=== PATIENT | male | born 1935 | race Caucasian/White ===

== ENCOUNTER 2017-03-01 23:50 | Inpatient (IN) | payer MEDICARE, OTHER ==
[~2017-03-01] VITALS: Ht 180.3 cm; Wt 86.9 kg
[2017-03-02 01:16] VITALS: BP 147/84
[2017-03-02 01:30] VITALS: BP 147/84
[2017-03-02] MEDS: SODIUM CHLORIDE 0.9% 1,000 ML IV SCH ×2 (01:58→19:59)
[2017-03-02] MEDS ORDERED: DOCUSATE 100 MG CAPSULE PO PRN (02:00)
[2017-03-02] MEDS ORDERED: PROMETHAZINE 25 MG/ML, 1ML IM PRN (02:00)
[2017-03-02] MEDS ORDERED: OXYcodone IR 5MG TABLET PO PRN (02:00)
[2017-03-02] MEDS ORDERED: POLYETHYLENE GLYCOL 17 GM PACKET PO PRN (02:00)
[2017-03-02] MEDS ORDERED: morphine SULFATE 10 MG/ML, 1ML IVPush PRN (02:00)
[2017-03-02] MEDS ORDERED: BISACODYL 10 MG SUPP PR PRN (02:00)
[2017-03-02] MEDS ORDERED: ACETAMINOPHEN 325 MG TABLET PO PRN (02:00)
[2017-03-02 03:50] LABS: ASPARTATE AMINO TRANSFERASE 25 U/L (15-37); BLOOD UREA NITROGEN 26 mg/dL (7-18)
[2017-03-02 08:17] VITALS: BP_SYST 114; BP_SYST 123; BP_DIAS 71; BP_DIAS 76
[2017-03-02] MEDS: FINASTERIDE 5 MG TABLET PO SCH (10:20)
[2017-03-02] MEDS: FAMOTIDINE 20 MG TABLET PO SCH ×2 (10:20→19:59)
[2017-03-02] MEDS ORDERED: MIDAZOLAM 1 MG/ML, 5ML ONE (12:27)
[2017-03-02] MEDS ORDERED: NALOXONE 1 MG/ML, 2ML ONE (12:27)
[2017-03-02] MEDS ORDERED: FENTANYL PF 100 MCG/2ML ONE (12:27)
[2017-03-02] MEDS ORDERED: FLUMAZENIL 0.1 MG/1 ML, 5ML ONE (12:27)
[2017-03-02 13:54] VITALS: BP 103/63
[2017-03-02] MEDS ORDERED: GADOBUTROL 10 MMOL/10 ML PFS ONE (14:48)
[2017-03-02 19:55] VITALS: BP 112/75
[2017-03-03 04:03] VITALS: BP 131/86
[2017-03-03 05:08] LABS: BLOOD UREA NITROGEN 26 mg/dL (7-18)
[2017-03-03] MEDS ORDERED: MAGNESIUM SULFATE PMX 2GM/50ML 50 ML IV ONE (07:00)
[2017-03-03] MEDS: FINASTERIDE 5 MG TABLET PO SCH (09:47)
[2017-03-03] MEDS: FAMOTIDINE 20 MG TABLET PO SCH ×2 (09:47→20:26)
[2017-03-03] MEDS ORDERED: METHOCARBAMOL 500 MG TABLET PO PRN (12:00)
[2017-03-03] MEDS: ENOXAPARIN 40 MG/0.4 ML SQ SCH (13:28)
[2017-03-03 14:04] VITALS: BP 110/74
[2017-03-03] MEDS: ONDANSETRON 2MG/ML, 2ML IVPush PRN (14:16)
[2017-03-03 19:26] VITALS: BP 138/89
[2017-03-04 04:00] VITALS: BP 133/89
[2017-03-04 05:01] LABS: BLOOD UREA NITROGEN 23 mg/dL (7-18)
[2017-03-04 07:52] VITALS: BP 135/91
[2017-03-04] MEDS: FINASTERIDE 5 MG TABLET PO SCH (07:58)
[2017-03-04] MEDS: FAMOTIDINE 20 MG TABLET PO SCH ×2 (07:58→21:41)
[2017-03-04] MEDS: ENOXAPARIN 40 MG/0.4 ML SQ SCH (12:19)
[2017-03-04 13:52] VITALS: BP 124/88
[2017-03-04] MEDS: ONDANSETRON 2MG/ML, 2ML IVPush PRN (17:17)
[2017-03-04] MEDS ORDERED: POLYETHYLENE GLYCOL 17 GM PACKET NG ONE (18:00)
[2017-03-04] MEDS: LACTULOSE 20 GM/30 ML UDC PO SCH ×2 (18:34→21:00)
[2017-03-04 20:15] VITALS: BP 121/87
[2017-03-05 02:00] VITALS: BP 131/91
[2017-03-05 07:37] VITALS: BP 123/79
[2017-03-05] MEDS: LACTULOSE 20 GM/30 ML UDC PO SCH (07:54)
[2017-03-05] MEDS: FAMOTIDINE 20 MG TABLET PO SCH (07:54)
[2017-03-05] MEDS: FINASTERIDE 5 MG TABLET PO SCH (07:54)
[2017-03-05] MEDS: ENOXAPARIN 40 MG/0.4 ML SQ SCH (12:25)
[2017-03-05] MEDS ORDERED: HYDR-3240 PO (13:23)
[2017-03-05] MEDS ORDERED: DOCU-30 PO (13:23)
[2017-03-05] MEDS ORDERED: ONDA4TAB13 SL (13:23)
[2017-03-05 13:39] VITALS: BP 126/87
== END 2017-03-05 14:50 | disposition home or self-care (01) | DRG 542 ==
LOC: 3NW 03-02 00:57
PROC: 0FB23ZX Excision of Left Lobe Liver, Percutaneous Approach, Diagnostic (ICD-10-PCS; principal; 2017-03-02)
DX: C79.51 Secondary malignant neoplasm of bone (principal); E43 Unspecified severe protein-calorie malnutrition; I81 Portal vein thrombosis; C25.9 Malignant neoplasm of pancreas, unspecified; E87.1 Hypo-osmolality and hyponatremia; C78.7 Secondary malignant neoplasm of liver and intrahepatic bile duct; C78.6 Secondary malignant neoplasm of retroperitoneum and peritoneum; D68.59 Other primary thrombophilia; I82.890 Acute embolism and thrombosis of other specified veins; C78.00 Secondary malignant neoplasm of unspecified lung; R18.8 Other ascites; M54.5 Low back pain; G89.29 Other chronic pain; I10 Essential (primary) hypertension; K21.9 Gastro-esophageal reflux disease without esophagitis; K59.00 Constipation, unspecified; M51.36 Other intervertebral disc degeneration, lumbar region; N40.0 Benign prostatic hyperplasia without lower urinary tract symptoms; Z51.5 Encounter for palliative care; Z80.0 Family history of malignant neoplasm of digestive organs; Z85.07 Personal history of malignant neoplasm of pancreas; Z86.010 Personal history of colon polyps
CPT/HCPCS: 36415; 47000; 70553; 72157; 72158; 77012; 80048; 80053; 81001; 83735; 84100; 85025; 85610; 86301; 88307; 99156; 99157; A9585; J1650; J2250; J2405; J3010; J2310; J3475; J7030